=== PATIENT | female | born 1985 | race Caucasian/White ===

== ENCOUNTER 2016-12-22 15:27 | Outpatient (CLI) | payer OTHER ==
[2016-12-22 15:59] LABS: BILIRUBIN,URINE NEGATIVE (NEGATIVE)
[2016-12-22 16:11] LABS: WBC,URINE 0-3 /HPF (0-5)
--- NOTE | 2016-12-23 09:01 | XRAY Report ---
LEFT HIP AND PELVIS: 12/22/2016 CLINICAL INDICATION: Left hip pain, intermittent. FINDINGS: Frontal view of the hips and pelvis and frogleg lateral view of the left hip demonstrate n ormal joint spaces. There is no evidence of fracture or dislocation. The sacroiliac joints are unre markable. IMPRESSION: NORMAL LEFT HIP AND PELVIS. JOB #: [id number] EXT JOB #:[id number]
== END 2016-12-22 15:28 | disposition home or self-care (01) ==
LOC: LAB 15:27
PROVIDERS: ATTEND Internal Medicine Rheumatology
DX: M25.552 Pain in left hip (principal); R76.8 Other specified abnormal immunological findings in serum
CPT/HCPCS: 81001

== ENCOUNTER 2017-01-24 07:41 | Outpatient (CLI) | payer OTHER ==
--- NOTE | 2017-01-24 09:49 | MRI Report ---
EXAM: LEFT HIP MRI WITHOUT CONTRAST EXAM DATE: 01/24/2017 08:31 AM. CLINICAL HISTORY: LOW BACK PAIN, PAIN IN LEFT HIP. COMPARISON: None. TECHNIQUE: Multiplanar, multisequence T1-weighted and fluid-sensitive, small xlocp-kn-ooft sequences of the hip and large knljl-[id number] sequences of the pelvis without contrast. Other: None. FINDINGS: Bones: No fractures or subluxations. No marrow edema or bone lesions. Right/left Hip: Left Femoral head/neck offset is within normal limits. No effusion or loose bodies. T he articular cartilage is intact. Linear T2 hyperintensity superior labrum with an adjacent 1.5 x 1.2 cm paralabral multilocular cyst, likely a labral tear. The ligamentum teres is intact. Other Joints: The visualized lumbar spine, sacroiliac joints, symphysis pubis, and contralateral hip are unremarkable. Musculature: Edema in the deep portion of the left gluteus medius and some edema extends along the la teral border of the proximal left vastus intermedius, likely muscle strain. Mild edema left right quadratus femoris with mild narrowing of the ischiofemoral space at 1.2 cm. Pelvic Cavity: The visualized viscera are unremarkable. No lymphadenopathy. No free fluid in the pelv is. Other: The visualized sciatic nerves are unremarkable. No bursitis. The subcutaneous tissues are unre markable. IMPRESSION: 1. Probable left superior acetabular labral tear with adjacent para labral cyst. 2. Grade 1 strain left gluteus medius and proximal left vastus intermedius. 3. Mild edema right quadratus femoris with mild narrowing in the ischiofemoral space raises concern f or ischiofemoral impingement. [facility] MUSCULOSKELETAL RADIOLOGY SECTION Referring Provider Line: [phone] SITE ID: [id number]
--- NOTE | 2017-01-24 10:14 | MRI Report ---
EXAM: MRI SACRUM/SI JOINTS WITHOUT CONTRAST EXAM DATE: 01/24/2017 08:54 AM. CLINICAL HISTORY: LOW BACK PAIN, PAIN IN LEFT HIP. COMPARISON: None. TECHNIQUE: Multiplanar, multisequence T1-weighted and fluid-sensitive sequences of the sacrum/sacroil iac joints without contrast. Other: None. FINDINGS: Bones: Small focus mild marrow edema right inferolateral S3 sacrum just behind the SI joint. Remainin g bony structures normal. No erosion or fracture. Sacroiliac Joints: SI joints appear normal. Musculature: No edema or fatty atrophy. Neurologic Structures: The sacral neural foramina are patent, and the sacral nerve roots have normal signal intensity. The visualized sciatic nerves are unremarkable. Pelvic Cavity: The visualized bowel, bladder, and reproductive organs are unremarkable. No lymphadeno mateus. No free fluid in the pelvis. Other: No bursitis. The subcutaneous tissues are unremarkable. IMPRESSION: 1. Small focus mild marrow edema right posterolateral S3 sacrum, bone bruise versus stress reaction. 2. SI joints and remainder of the visualized pelvis appear normal. [facility] MUSCULOSKELETAL RADIOLOGY SECTION Referring Provider Line: [phone] SITE ID: [id number]
== END 2017-01-24 07:42 | disposition home or self-care (01) ==
LOC: DI 07:41
PROVIDERS: ATTEND Internal Medicine Rheumatology
DX: M25.552 Pain in left hip (principal); M54.5 Low back pain
CPT/HCPCS: 72195

== ENCOUNTER 2020-02-07 09:39 | Outpatient (CLI) | payer OTHER ==
--- NOTE | 2020-02-08 11:47 | Nuclear Medicine Report ---
PROCEDURE: Thyroid Imaging and Uptake INDICATIONS: THYROTOXICOSIS RADIOPHARMACEUTICAL: 399 ?Ci I-123 sodium iodide by mouth. TECHNIQUE: I-123 sodium iodide was administered orally. Anterior neck images were obtained, and iodine uptake b y the thyroid gland calculated using data visualization developer's software. COMPARISON: None available. FINDINGS: Morphology: The thyroid gland has normal morphology and uniform activity. No ?cold? or ?hot? thyroi d nodules are identified. Uptake: 6 hour thyroid uptake is 80%; normal ranges are from 6-18%. 24 hour thyroid uptake is 72%; normal ranges are from 10-30%. IMPRESSION: 1. Homogeneously increased thyroid radioiodine uptake likely reflecting Graves' disease. Reviewed by: Tyler Palmer MD on 02/08/2020 10:46 AM NADJA Approved by: Tyler Palmer MD on 02/08/2020 10:46 AM NADJA Station ID: [id number]
== END 2020-02-07 09:40 | disposition home or self-care (01) ==
LOC: DI 09:39
DX: E05.90 Thyrotoxicosis, unspecified without thyrotoxic crisis or storm (principal)
CPT/HCPCS: 78014